=== PATIENT | male | born 2005 | race Caucasian/White ===

== ENCOUNTER 2025-01-24 17:49 | Emergency (ER) | payer SELFPAY ==
[2025-01-24 18:08] VITALS: BP 137/87; PULSE 70; RESP 14; TEMP 36.6; O2SAT 99; BMI 25.1
--- NOTE | 2025-01-24 19:49 | ED_ITS ---
HPI - General Adult General Chief complaint: Skin/Abscess/Foreign Body Stated complaint: General Medical Time Seen by Provider: 01/24/25 20:32 History of Present Illness ED Provider: Nestor Waters MD HPI narrative: 20-year-old male healthy no reports this is the 3rd episode swelling and inflammation right upper buttock area no previous antibiotic or medical intervention this 1 started a few days ago he has been trying to put warm compresses take hot showers but there is only been worsening swelling pain. No systemic symptoms or fever. No rectal pain or pain with defecating. No personal medical history does not take any meds Related Data Previous Rx's ?Medication ?Instructions ?Recorded sulfamethoxazole 800 1 tab PO Q12H 5 days #10 tab s 01/24/25 mg-trimethoprim 160 mg tablet (Bactrim DS) Allergies Allergy/AdvReac Type Severity Reaction Status Date / Time No Known Allergies Allergy Verified 01/24/25 18:10 [facility] Social History Social History Smoked in Last 30 Days: No Use of substances other than those prescribed or required for medical reasons: No Advance Directives: No Advance Directives Information Provided: No Physical Exam ED Exam Exam: GENERAL: Well appearing. No apparent distress. Alert. HEAD/NECK: No visual trauma. EYES: Normal to inspection. No conjunctival erythema. No discharge. ENMT: Hearing grossly normal. External nose normal. RESPIRATORY: Respiratory effort normal. CARDIOVASCULAR: Additional details (Grossly well perfused). SKIN: No jaundice. NEUROLOGICAL: Alert. Moving all extremities x4. Additional details (No gross motor deficits. Normal tone. ). PSYCHIATRIC: Alert. Appearance appropriate for situation. Buttock: Right upper buttock just to the right of midline large fluctuant erythematous area Vital Signs: Vital Signs - 24 hr 01/24/25 18:08 01/24/25 21:27 01/24/25 22:28 Temperature 97.8 F 98.5 F 98.5 F Pulse Rate 70 71 71 Respiratory Rate 14 18 18 Blood Pressure 137/87 125/65 125/65 Pulse Oximetry 99 98 98 Oxygen Delivery Method Room Air Room Air Room Air BMI result Body Mass Index 25.1 Course Course Course Narrative: RME: 20 yold male presents to the ED for pilondial cyst since tuesday that has increased in size. patient to be evaluated in the ED> Medications Administered Discontinued Medications Generic Name Dose Route Start Last Admin Trade Name Freq PRN Reason Stop Dose Admin Lidocaine HCl 1 appl 01/24/25 20:32 01/24/25 20:45 Lidocaine 4 % Cream Kit TOPICAL 01/24/25 20:33 1 appl ONCE ONE Administration Protocol Lidocaine HCl 5 ml 01/24/25 20:32 01/24/25 22:19 Lidocaine Hcl 2 % Mpf 5 Ml Vial INFILTRATI 01/24/25 20:33 5 ml ONCE ONE Administration Oxycodone HCl 5 mg 01/24/25 20:32 01/24/25 20:45 Oxycodone Hcl Immed Release 5 Mg Tablet PO 01/24/25 20:33 5 mg ONCE ONE Administration Trimethoprim/Sulfamethoxazole 1 tab 01/24/25 20:32 01/24/25 20:45 Sulfamethox/Trimeth 800/160 Tablet PO 01/24/25 20:33 1 tab ONCE ONE Administration Procedures Procedure Narrative Procedure Narrative: Emergency point of care ultrasound skin Indication: Swelling and fluctuantce Finding: large complex collection Impression: subcutaneous abscess. Images stored. 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 This is clearly well identified on ultrasound proximally 2 x 3- 1/2 x 2 cm complex collection. No perianal disease. No fever or systemic symptoms. Plan for analgesia, anesthetic and incision and drainage with packing. Surgical follow up. Bactrim NSAIDs and sit bath Discharge Plan Discharge Clinical Impression: Pilonidal abscess Patient Disposition: Home, Self-Care Instructions: Pilonidal Cyst (ED), Abscess (ED), Sitz Bath (DC) Additional Instructions: You had an incision and drainage and we left packing in the cavity. Leave this in if it falls out on its own do not worry nothing to do. You need to have a wound check either way in 2-3 days. Take the antibiotics as prescribed. After the packing is removed follow the additional instructions but you should be doing Sitz baths and follow up with General surgery after healing Prescriptions: New sulfamethoxazole-trimethoprim [Bactrim DS] 800-160 mg tablet 1 tab PO Q12H 5 Days Qty: 10 0RF Stand Alone Forms: Work/School Release Interventions: ED Discharge Assessment Last Done: 01/24/25 22:28 Discharge Date/Time: 01/24/25 22:28 Print Language: Estonian
[2025-01-24] MEDS: oxyCODONE HCl Immed Release 5 MG TABLET PO (20:45)
[2025-01-24] MEDS: Lidocaine 4 % Cream KIT 1 APPL TOPICAL (20:45)
[2025-01-24] MEDS: Sulfamethox/Trimeth 800/160 TABLET 1 TAB PO (20:45)
[2025-01-24 21:27] VITALS: BP 125/65; PULSE 71; RESP 18; TEMP 36.9; O2SAT 98
[2025-01-24] MEDS: Lidocaine HCl 2 % MPF 5 ML VIAL INFILTRATI (22:19)
[2025-01-24 22:28] VITALS: BP 125/65; PULSE 71; RESP 18; TEMP 36.9; O2SAT 98
== END 2025-01-24 22:28 | disposition home or self-care (01) ==
PROVIDERS: Emergency Provider Emergency Medicine
DX: L05.01 Pilonidal cyst with abscess (principal)
CPT/HCPCS: 10080; 87070; 87205; 99284; J2003